=== PATIENT | male | born 1975 | race Caucasian/White ===

== ENCOUNTER 2021-04-12 14:25 | Outpatient (CLI) | payer BC | END 2021-04-12 14:26 | disposition home or self-care (01) | LOC: LABBT 14:25 | PROVIDERS: ATTEND Orthopaedic Surgery Hand Surgery | DX: Z01.812 Encounter for preprocedural laboratory examination (principal); G56.01 Carpal tunnel syndrome, right upper limb; G56.21 Lesion of ulnar nerve, right upper limb | CPT/HCPCS: 85025 ==

== ENCOUNTER 2021-07-25 14:20 | Outpatient (CLI) | payer BC ==
[2021-07-25 15:33] LABS: #Basophils 0.1 10x3/uL (0.0-0.2); #Eosinphils 0.1 10x3/uL (0.0-0.5); #Monocytes 0.6 10x3/uL (0.0-1.1); #Neutrophils 5.5 10x3/uL (1.5-8.4); %Basophils 0.9 % (0.0-2.0); Hemoglobin 14.8 g/dL (13.5-17.5); Mean Corpuscular HGB CONC 33.3 g/dL (32.0-36.0); Mean Corpuscular Hemoglobin 31.2 pg (27.0-33.0); Mean Corpuscular Volume 93.9 fl (81.2-95.1); Mean Platelet Volume 10.1 fl (7.4-10.4); Platelet Count 250 10x3/uL (150-450); RBC Distribution Width 12.1 % (11.5-14.5); Red Blood Cell (RBC) Count 4.74 10x6/uL (4.32-5.72); White Blood Cell (WBC) Count 7.9 10x3/uL (3.5-10.5)
[2021-07-26 01:01] LABS: SARS-CoV-2 PCR by NAA Not Detected (NotDetected)
== END 2021-07-25 14:21 | disposition home or self-care (01) ==
LOC: LABBT 14:20
PROVIDERS: ATTEND Orthopaedic Surgery Hand Surgery
DX: Z01.812 Encounter for preprocedural laboratory examination (principal); G56.02 Carpal tunnel syndrome, left upper limb; G56.22 Lesion of ulnar nerve, left upper limb; Z20.822 Contact with and (suspected) exposure to COVID-19
CPT/HCPCS: 85025; U0003; U0005

== ENCOUNTER 2021-07-28 05:51 | Day surgery (SDC) | payer BC ==
[2021-07-27 08:30] VITALS: BMI 36.3
[2021-07-28] MEDS ORDERED: Neomycin-Polymyxin 1 ML AMP ONE (06:16)
[2021-07-28] MEDS ORDERED: Bupivacaine PF 0.5% 30 ML VIAL ONE ×2 (06:16→07:39)
[2021-07-28] MEDS ORDERED: Bacitracin Zinc Ointment 30 gm TUBE ONE (06:16)
[2021-07-28] MEDS ORDERED: Betamet Acet/Betamet Na Ph 30 MG/5 ML VIAL ONE (06:16)
[2021-07-28] MEDS ORDERED: Fentanyl 250 MCG/5 ML VIAL ONE ×2 (06:54→09:15)
[2021-07-28] MEDS ORDERED: Midazolam HCl 2 mg/2 ml Vial ONE (06:54)
[2021-07-28] MEDS ORDERED: ceFAZolin 2 GM/DEX 5% 100 ML BAG ONE (06:54)
[2021-07-28] MEDS ORDERED: Ketorolac Tromethamine 30 MG/ML VIAL ONE ×2 (07:12→10:26)
[2021-07-28] MEDS ORDERED: ePHEDrine 50 MG/ML VIAL ONE (07:12)
[2021-07-28] MEDS ORDERED: Lidocaine 1% PF 5 ML VIAL ONE (07:12)
[2021-07-28] MEDS ORDERED: Dexamethasone 20 MG/5 ML VIAL ONE (07:12)
[2021-07-28] MEDS ORDERED: Ondansetron PF 4 MG/2 ML Vial ONE (07:12)
[2021-07-28] MEDS ORDERED: PHENYLEPHRINE-NS 100 MCG/ML 10 ML SYRINGE ONE (07:12)
[2021-07-28] MEDS ORDERED: PROPOFOL 200 MG/20 ML VIAL ONE (07:12)
[2021-07-28] MEDS ORDERED: Glycopyrrolate 0.2 MG/ML 5 ML SYRINGE ONE (07:12)
[2021-07-28] MEDS ORDERED: Phenylephrine 10 MG/ML VIAL ONE (08:41)
[2021-07-28] MEDS ORDERED: Fentanyl 100 MCG/2 ML VIAL ONE ×2 (09:15→11:36)
== END 2021-07-28 12:20 | disposition home or self-care (01) ==
LOC: SDC 05:51
PROVIDERS: ATTEND Orthopaedic Surgery Hand Surgery
PROC: 01N50ZZ Release Median Nerve, Open Approach (ICD-10-PCS; principal; 2021-07-28)
PROC: 01N40ZZ Release Ulnar Nerve, Open Approach (ICD-10-PCS; principal; 2021-07-28)
DX: G56.02 Carpal tunnel syndrome, left upper limb (principal); G56.22 Lesion of ulnar nerve, left upper limb; M19.90 Unspecified osteoarthritis, unspecified site; G47.30 Sleep apnea, unspecified; Z79.899 Other long term (current) drug therapy; Z88.5 Allergy status to narcotic agent
CPT/HCPCS: C1889; J0702; J1100; J1885; J2250; J2370; J2405; J2704; J3010; J3490; S0020